=== PATIENT | female | born 1985 | race Caucasian/White ===

== ENCOUNTER 2017-08-12 15:04 | Emergency (ER) | payer MEDICAID, SELFPAY ==
[2017-08-12 15:04] VITALS: BP 140/98; PULSE 109; RESP 16; TEMP 36.6; O2SAT 98; BMI 17.6
--- NOTE | 2017-08-12 15:27 | EKG12_ITS ---
Test Reason : HIGH K+ Blood Pressure : / mmHG Vent. Rate : 111 BPM Atrial Rate : 111 BPM P-R Int : 126 ms QRS Dur : 068 ms QT Int : 316 ms P-R-T Axes : 060 062 150 degrees QTc Int : 429 ms Sinus tachycardia Nonspecific ST and T wave abnormality Abnormal ECG Confirmed by JESUS TARIQ, FABIAN ([id number]), food editor SUDARSHAN MCCOLLUM ([id number]) on 08/15/2017 12:58:06 PM Referred By: OVIDIO Confirmed By:FABIAN LEE MD
[2017-08-12 15:32] VITALS: PULSE 110; RESP 18; O2SAT 99
[2017-08-12 15:33] VITALS: BP 140/98; PULSE 109; RESP 18; TEMP 36.6; O2SAT 98
--- NOTE | 2017-08-12 15:46 | ED.RN ---
pt medication list updated from pt verbal information. pt reports being unsure of all her home medications, pt educated that she would need a list enterred pending admission.
[2017-08-12 16:20] LABS: Anion Gap 8 (5-15); BUN 17 mg/dL (7-18); BUN/Creat Ratio 13.1 RATIO (10-20); Calcium,Total 7.4 mg/dL (8.5-10.1); Chloride 115 mmol/L (98-107); EST Glomerular Filtration Rate 51 mL/min (>60); Est Glom Filt Rate - Afr Amer 62 mL/min (>60); Estimated Creatinine Clearance 45.31 ml/min; Glucose 96 mg/dL (74-106); Potassium 5.1 mmol/L (3.5-5.1); Sodium Level 146 mmol/L (136-145)
[2017-08-12 16:21] VITALS: BP 139/102; PULSE 115; RESP 25; O2SAT 100
--- NOTE | 2017-08-12 16:35 | ED.DCSUM_ITS ---
- ER Visit Summary Date of Service: 08/12/17 Chief Complaint: High potassium History of Present Illness: The patient is a [address] Mitchell and Dr. paredes. 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 She reports that she gets labs twice a week. Typically her potassium runs approximately 5.5. She takes 30 g of Kayexalate a day. Patient reports that today her potassium was 7 at 9 this morning. She took 60 g of Kayexalate at 130. She reports she has abdominal cramping from the Kayexalate, but she denies any other complaints. Physical Examination: Vitals: Stable. Afebrile. General: Well-nourished and well-developed. Head: Normocephalic atraumatic. Neck: Supple, no lymphadenopathy. No JVD. Nontender. Cardiovascular: Regular rate and rhythm. No murmurs. Respiratory: No respiratory distress. Clear to auscultation bilaterally. Abdominal: Soft, nontender, nondistended, normal bowel sounds. No guarding, rebound, or peritoneal signs. Back: Nontender. Extremities: Nontender, no edema. Skin: Normal color, no rash. Neurologic: Alert and oriented ?3. Cranial nerves II through XII are intact. Normal strength and sensation. Psych: Normal affect. Test Results: EKG is sinus tach at 111 with T-wave inversions in leads V3 to V5. There is no old EKG for comparison. Her QRS interval is normal at 68. Chem-7 is more for sodium 146, chloride 115, creatinine 1.3, calcium 7.4. Her potassium is 5.1. Emergency Department Course and Treatment: Patient rested comfortably without complaint. Treatment Plan: The patient was discussed with the performance improvement coordinator at [facility]. They compared her labs to her old labs and report that they are actually improving and that her creatinine is improved. They will discuss the fact that her potassium is now normal, but was 7 earlier with the attending and may change her Kayexalate. They will contact the patient with further instructions. Return to the emergency department for any worsening symptoms. Disposition: To home in improved and stable condition. Impression: 1. Hyperkalemia. 2. 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 This note was generated with [employer] software. It may contain incorrect words, spelling, and punctuation that were not noted in review of the chart prior to signing ED Disposition - Plan for ED Patient: Chief Complaint: Abn Labs Instructions: ED Potassium Excess Referrals: Marcelino Mitchell MD [Primary Care Provider] - Additional Instructions: The performance improvement coordinator will call you tomorrow after speaking with the attending physician about changing in your dosing of Kayexalate.
[2017-08-12 16:57] VITALS: PULSE 117; RESP 22; O2SAT 98
--- NOTE | 2017-08-12 17:21 | ED.RN ---
1710-Verbal and written dc instructions given. All questions answered. Port-a-cath de-accessed without difficulty. Patient via w/c out of department.
== END 2017-08-12 17:12 | disposition home or self-care (01) ==
PROVIDERS: Emergency Provider Emergency Medicine; Family Provider Family Medicine; PCP Family Medicine
DX: E87.5 Hyperkalemia (principal); Z94.2 Lung transplant status
CPT/HCPCS: 36591; 80048; 93005; 99283; A4216

== ENCOUNTER 2017-08-23 15:07 | Emergency (ER) | payer MEDICAID, SELFPAY ==
[2017-08-23 15:08] VITALS: BP 143/102; PULSE 110; RESP 16; TEMP 37.3; O2SAT 97; BMI 19.6
--- NOTE | 2017-08-23 15:44 | ED.VISSUMM ---
- ER Visit Summary Date of Service: 08/23/17 Chief Complaint: [Low magnesium] History of Present Illness: The patient is a 32 F [presents to the emergency department with complaint of low magnesium today. Patient had a lung transplant June 14, 2017 and today was having a follow-up appointment with 1 of the transplant physicians at [facility] where she had basic blood work done. Patient was noted to have a magnesium of 1.0. Patient was advised to come to the emergency department and receive IV magnesium. Patient denies any significant complaints and feels well.] Patient has history of cystic fibrosis. Physical Examination: [HEENT-PERRLA, EOMI. Cranial nerves II through XII grossly intact. TMs clear. Mucous membranes moist. No adenopathy. Cardiovascular-regular rate and rhythm without murmur or ectopy Lungs-clear to auscultation, chest wall stable without crepitus or subcu emphysema Abdomen-normoactive bowel sounds, soft, nontender, no rebound or rigidity, no peritoneal signs. Extremities-intact ?4, normal range of motion, normal pulses, atraumatic] Test Results: [None indicated] Emergency Department Course and Treatment: [I discussed case with Sonal who is the neighborhood coordinator at [facility] who did ask that we give patient 3-4 g of IV magnesium at the request of . Patient currently also taking p.o. magnesium 3 times a day and they will switch her to magnesium citrate long-term.] Treatment Plan: [Give 4 g of magnesium IV] Disposition: [Discharged to home in stable condition. Patient advised to follow-up with her transplant team as advised.] Impression: [Hypomagnesemia] This note was generated with [employer] dictation software. It may contain incorrect words, spelling, and punctuation that were not noted in review of the chart prior to signing ED Disposition - Plan for ED Patient: Chief Complaint: Abn Labs Referrals: Marcelino Mitchell MD [Primary Care Provider] -
--- NOTE | 2017-08-23 15:47 | ED.DCSUM_ITS ---
- ER Visit Summary Date of Service: 08/23/17 Chief Complaint: [Low magnesium] History of Present Illness: The patient is a 32 F [presents to the emergency department with complaint of low magnesium today. Patient had a lung transplant June 14, 2017 and today was having a follow-up appointment with 1 of the transplant physicians at [facility] where she had basic blood work done. Patient was noted to have a magnesium of 1.0. Patient was advised to come to the emergency department and receive IV magnesium. Patient denies any significant complaints and feels well.] Patient has history of cystic fibrosis. Physical Examination: [HEENT-PERRLA, EOMI. Cranial nerves II through XII grossly intact. TMs clear. Mucous membranes moist. No adenopathy. Cardiovascular-regular rate and rhythm without murmur or ectopy Lungs-clear to auscultation, chest wall stable without crepitus or subcu emphysema Abdomen-normoactive bowel sounds, soft, nontender, no rebound or rigidity, no peritoneal signs. Extremities-intact ?4, normal range of motion, normal pulses, atraumatic] Test Results: [None indicated] Emergency Department Course and Treatment: [I discussed case with Sonal who is the brand coordinator at [facility] who did ask that we give patient 3-4 g of IV magnesium at the request of . Patient currently also taking p.o. magnesium 3 times a day and they will switch her to magnesium citrate long-term.] Treatment Plan: [Give 4 g of magnesium IV] Disposition: [Discharged to home in stable condition. Patient advised to follow -up with her transplant team as advised.] Impression: [Hypomagnesemia] This note was generated with [employer] dictation software. It may contain incorrect words, spelling, and punctuation that were not noted in review of the chart prior to signing ED Disposition - Plan for ED Patient: Chief Complaint: Abn Labs Referrals: Marcelino Mitchell MD [Primary Care Provider] -
--- NOTE | 2017-08-23 15:47 | ED.DEP ---
ED Disposition - Plan for ED Patient: Chief Complaint: Abn Labs Instructions: Discharge Instructions for Hypomagnesemia Referrals: Marcelino Mitchell MD [Primary Care Provider] - Additional Instructions: See your transplant team as instructed
[2017-08-23 17:23] VITALS: BP 145/107; PULSE 103; RESP 16
[2017-08-23 18:32] VITALS: BP 147/106; PULSE 110; RESP 14
[2017-08-23] MEDS: DiphenhydrAMINE 50 MG/ML Syringe 25 MG IV (18:45)
[2017-08-23 21:20] VITALS: BP 154/117; PULSE 111; RESP 18; O2SAT 97
== END 2017-08-23 21:28 | disposition home or self-care (01) ==
PROVIDERS: Emergency Provider Emergency Medicine; Family Provider Family Medicine; PCP Family Medicine
DX: E83.42 Hypomagnesemia (principal); E84.9 Cystic fibrosis, unspecified; Z94.2 Lung transplant status; Z86.79 Personal history of other diseases of the circulatory system; Z79.899 Other long term (current) drug therapy
CPT/HCPCS: 96365; 96366; 96374; 99284; J3475

== ENCOUNTER 2018-08-18 12:38 | Emergency (ER) | payer MEDICAID, SELFPAY ==
[2018-08-18 12:39] VITALS: BP 104/70; PULSE 70; RESP 17; TEMP 37; O2SAT 99; BMI 22.1
--- NOTE | 2018-08-18 12:54 | CT_ITS ---
STUDY: CT ABDOMEN AND PELVIS WITHOUT CONTRAST REASON FOR EXAM: Female, 33 years old. Worsening right flank pain. History of cystic fibrosis and bilateral lung transplantation. RADIATION DOSAGE (If Supplied By Facility): CTDIvol = ( 6.09 ) mGy, DLP = ( 273.97 ) mGycm TECHNIQUE: Transaxial images were obtained from the dome of the diaphragm to the symphysis pubis without oral contrast, and without intravenous contrast. Sagittal and coronal images were reconstructed. Individualized dose optimization techniques were used for this CT. COMPARISON: Comparison is made with prior study dated August 13, 2014. FINDINGS: Increased markings at the lung bases worse at the left lung base suggests lobar atelectasis and/or early infiltrate. The visualized portions of the heart are within normal limits. Normal liver. Normal gallbladder and extrahepatic biliary system. Normal spleen. There is diffuse atrophy of the pancreas. Normal bilateral adrenal glands. Punctate calcification in the anterior midpole calyx as well as the upper extremity right kidney. Normal left kidney. Normal visualized stomach. Normal small intestine. A large amount of fecal material is seen in the colon. The appendix is visualized and appears normal. Normal abdominal aorta. Normal inferior vena cava. Normal retroperitoneum. Normal urinary bladder. An IUD is seen within the uterus. Normal abdominal wall. Cota mami fixation of a levoscoliosis from the lower thoracic spine to the upper lumbar spine region. CT/Abdomen/Pelvis without Cont IMPRESSION: Large amount of fecal material is seen in the colon. IUD seen within the pelvis. Nonobstructive right intrarenal calculi. Electronically Signed: Alan Terrell, at 15:14 EDT , Service support ,
[2018-08-18] MEDS: Morphine 4 MG/ML Syringe IV (14:20)
[2018-08-18] MEDS: 0.9% Normal Saline 1,000 ML 125 ML IV (14:20)
[2018-08-18] MEDS: Ketorolac 30 MG/ML Syringe IV (14:20)
[2018-08-18] MEDS: Ondansetron 4 MG/2 ML Vial IV (14:21)
[2018-08-18 14:22] LABS: Bacteria 0 SEEN /hpf (None Seen); Mucous, Urine 0 SEEN /hpf (<or=2+); Red Blood Cells-Urine 0 SEEN /hpf (0-5)
[2018-08-18 14:26] LABS: Color, Urine Yellow (Yellow); Glucose, Dipstick Normal (Normal); Ketone-Dipstick Negative (Negative); Leukocyte Esterase-Dipstick Negative /ul (Negative); Nitrite-Dipstick Negative (Negative); Occult Blood-Urine 50 /ul (Negative); Protein-Dipstick Negative (Negative); Specific Gravity, Urine 1.015 (1.002-1.030); Urine Bilirubin Dipstick Negative (Negative); Urine Clarity Clear (Clear); Urine Urobilinogen Normal (Normal)
[2018-08-18 14:28] LABS: Absolute Lymphocyte Count 0.89 X10^3/ul (0.83-4.51); Absolute Neutrophil Count 2.8 X10^3/uL (2.0-7.7); Basophil# 0.01 X10^3/uL; Basophil% 0.3 % (0-1); Eosinophil# 0.01 X10^3/uL; Eosinophils% 0.3 % (0-5); Hematocrit 30.3 % (37-47); Hemoglobin 9.8 g/dl (12.0-15.0); Lymphocyte # 0.89 X10^3/ul (4.0); Lymphocyte % 22.9 % (19-41); Mean Corp Hgb Conc 32.3 g/gl (32-36); Mean Corpuscular Hgb 28.5 pg (27.0-32.0); Mean Corpuscular Volume 88.1 fL (81-99); Mean Platelet Vol. 11.1 fl (6.2-12.0); Monocyte# 0.19 X10^3/uL; Monocyte% 4.9 % (0-10); Neutrophil # 2.78 X10^3/uL (2.7-7.7); Neutrophil % 71.3 % (47-70); POSITIVE COUNT NO; POSITIVE DIFFERENTIAL NO; POSITIVE MORPHOLOGY NO; Platelet Count 82 K/mm3 (150-450); RBC Distribution Width CV 12.7 % (11.6-14.6); RBC Distribution Width SD 39.4 fl (35.1-43.9); Red Blood Count 3.44 M/mm3 (4.2-5.4); White Blood Count 3.9 K/mm3 (4.4-11.0)
[2018-08-18 14:36] LABS: Squamous Epithelial Cells - UA 0-5 SEEN /hpf (5-10); White Blood Cells 0-5 SEEN /hpf (0-5)
[2018-08-18 14:39] LABS: Anion Gap 4 (5-15); BUN 13 mg/dL (7-18); BUN/Creat Ratio 10.6 RATIO (10-20); Calcium,Total 8.3 mg/dL (8.5-10.1); Chloride 110 mmol/L (98-107); Creatinine, Serum 1.23 mg/dL (0.55-1.02); EST Glomerular Filtration Rate 54 mL/min (>60); Est Glom Filt Rate - Afr Amer 65 mL/min (>60); Estimated Creatinine Clearance 54.82 ml/min; Glucose 128 mg/dL (74-106); Potassium 3.8 mmol/L (3.5-5.1); Sodium Level 137 mmol/L (136-145)
--- NOTE | 2018-08-18 15:37 | ED.VISSUMM ---
- ER Visit Summary Date of Service: 08/18/18 Chief Complaint: [Flank pain] History of Present Illness: The patient is a 33 F [presents to the emergency department with right-sided flank pain that started initially about a week ago. Patient states initially the pain was mild and just intermittent thought maybe she pulled a muscle in her back. Patient states that over the last 3 days the pain is been more continuous and she currently rates it an 8 out of 10. She is had some nausea with it but no vomiting. She denies urinary symptoms. Denies any fever. Patient does have a history of diabetes and hypertension. Patient has a history of a double lung transplant on June 09, 2017. Patient has prior history of cystic fibrosis. Patient has no prior abdominal surgeries however she has had back surgery and has rods related to scoliosis.] Physical Examination: [MOJGAN-YENIRTERA FITZPATRICK. Cranial nerves II through XII grossly intact. TMs clear. Mucous membranes moist. No adenopathy. Cardiovascular-regular rate and rhythm without murmur or ectopy Lungs-clear to auscultation, chest wall stable without crepitus or subcu emphysema Abdomen-normoactive bowel sounds, soft, nontender, no rebound or rigidity, no peritoneal signs. Extremities-intact ?4, normal range of motion, normal pulses, atraumatic Back exam-patient has tenderness over the right lumbar paraspinal musculature and tenderness on percussion. Negative straight leg raises.] Test Results: [CBC with differential 3.9, hemoglobin 9.8, hematocrit 30, platelets 82. Chemistries unremarkable. BUN was 13 and creatinine 1.23. Urinalysis was unremarkable. CT flank showed nothing acute.] Emergency Department Course and Treatment: [Patient initially medicated with Toradol as well as morphine and Zofran she had pain relief with that.] Treatment Plan: [Patient given a prescription for [place] for pain. Patient to follow-up with primary care physician in 3 to 5 days.] Disposition: [Discharged home in stable condition. Patient advised to return if worsening pain, fever, or conditions worsen anyway.] Impression: [Right flank pain-etiology uncertain] This note was generated with [employer] software. It may contain incorrect words, spelling, and punctuation that were not noted in review of the chart prior to signing ED Disposition - Plan for ED Patient: Referrals: Marcelino Mitchell MD [Primary Care Provider] -
--- NOTE | 2018-08-18 15:39 | ED.DEP ---
ED Disposition - Plan for ED Patient: Instructions: ED Flank Pain Uncertain Cause Prescriptions: Oxycodone HCl/Acetaminophen [Percocet 5/325] 1 tab PO Q6H PRN PRN 3 Days #12 tab PRN Reason: Pain Referrals: Marcelino Mitchell MD [Primary Care Provider] - 3-5 Days
[2018-08-18 16:59] VITALS: RESP 18
== END 2018-08-18 17:09 | disposition home or self-care (01) ==
LOC: ED 13:06
PROVIDERS: Emergency Provider Emergency Medicine; Family Provider Family Medicine; PCP Family Medicine
DX: R10.9 Unspecified abdominal pain (principal); R11.0 Nausea; E11.9 Type 2 diabetes mellitus without complications; I10 Essential (primary) hypertension; E84.9 Cystic fibrosis, unspecified; Z94.2 Lung transplant status; Z79.899 Other long term (current) drug therapy
CPT/HCPCS: 36591; 74176; 80048; 81001; 85025; 96361; 96374; 96375; 99282; J7030; A4216; J2405